=== PATIENT | female | born 1965 | race Caucasian/White ===

== ENCOUNTER → 2024-11-01 12:01 | Outpatient (REF) | payer BC, SELFPAY | LOC: WDC 12:01 | PROVIDERS: ATTENDING PHYSICIAN Nurse Practitioner | DX: Z12.31 Encounter for screening mammogram for malignant neoplasm of breast (principal) | CPT/HCPCS: 77063; 77067 ==

== ENCOUNTER → 2025-11-06 11:58 | Outpatient (REF) | payer BC, SELFPAY | LOC: WDC 11:58 | PROVIDERS: ATTENDING PHYSICIAN Nurse Practitioner | DX: Z12.31 Encounter for screening mammogram for malignant neoplasm of breast (principal) | CPT/HCPCS: 77063; 77067 ==